=== PATIENT | female | born 1995 | race Two or more races ===

== ENCOUNTER → 2024-11-19 | Emergency (ER) | payer OTHER ==
[~2024-11-19] VITALS: Ht 165.1 cm; Wt 76.0 kg
[~2024-11-19] MED LIST: METH-812 PO
[2024-11-19 21:33] VITALS: TEMP 97.9
[2024-11-19] MEDS: methocarbamoL 500 MG TABLET PO ONE (22:59)
[2024-11-19] MEDS: LIDOCAINE 5% TRANSDERMAL PATCH TD ONE (22:59)
[2024-11-19] MEDS: ACETAMINOPHEN 500 MG TABLET PO ONE (22:59)
[2024-11-19 23:53] VITALS: BP 109/65; PULSE 63; RESP 16; O2SAT 98
== END | disposition still patient (30) ==
LOC: EMS 21:20
DX: S13.4XXA Sprain of ligaments of cervical spine, initial encounter (principal); W51.XXXA Accidental striking against or bumped into by another person, initial encounter; Y93.89 Activity, other specified; Y92.89 Other specified places as the place of occurrence of the external cause; Y99.8 Other external cause status
CPT/HCPCS: 99284; Z7502; Z7610